=== PATIENT | male | born 2000 | race Caucasian/White ===

== ENCOUNTER 2019-08-16 07:56 | Outpatient (CLI) | payer BC ==
[2019-08-16] MEDS ORDERED: Gadobenate Dimeglumine 529 MG/1 ML (20ML VIAL) ONE (12:00)
--- NOTE | 2019-08-16 13:28 | MRI ---
MRI BRAIN WITH AND WITHOUT CONTRAST: DATE: 08/16/19 HISTORY: 19-year-old male with ICD-10: G43.109 migraine with aura and without status migrainosus, not intracta ble. TECHNIQUE: Multiple sequences obtained in axial, sagittal, and coronal planes; pre and post IV injection of gado linium-based contrast agent: 20 mL. FINDINGS: The ventricles are normal in size and configuration. There is no major intraaxial signal abnormality , restricted diffusion, abnormal intraaxial enhancement, mass, midline shift or any other mass effect , recent intraaxial hemorrhage, or extraaxial fluid collection. IMPRESSION: Normal. jn[] POS: DE[facility]IN[facility]
== END 2019-08-16 07:57 | disposition home or self-care (01) ==
LOC: MRI 07:56
PROVIDERS: ATTEND Family Medicine
DX: G43.109 Migraine with aura, not intractable, without status migrainosus (principal)
CPT/HCPCS: 70553; A9577

== ENCOUNTER 2023-09-10 10:21 | Outpatient (CLI) | payer OTHER | END 2023-09-10 10:22 | disposition home or self-care (01) | LOC: SCSRAD 10:21 | PROVIDERS: ATTEND Family Medicine | DX: M54.50 Low back pain, unspecified (principal) | CPT/HCPCS: 72100 ==